=== PATIENT | male | born 1980 | race Caucasian/White ===

== ENCOUNTER 2016-05-19 15:39 | Emergency (ER) | payer OTHER ==
[2016-05-19 16:53] LABS: HEMOGLOBIN 13.9 gm/dl (14.0-17.5); RED BLOOD COUNT 4.58 M/UL (4.20-5.50); WHITE BLOOD COUNT 7.1 K/UL (4.5-11.0)
== END 2016-05-19 19:30 | disposition home or self-care (01) ==
LOC: ER1 15:39 → ZEROF 18:18 → ER1 18:18 → ZEROF 18:18 → ER1 19:30
PROVIDERS: Emergency Medicine
DX: N19 Unspecified kidney failure (principal); K02.9 Dental caries, unspecified; F17.200 Nicotine dependence, unspecified, uncomplicated; E78.5 Hyperlipidemia, unspecified; Z79.899 Other long term (current) drug therapy
CPT/HCPCS: 71010; 80053; 82550; 82553; 83874; 84484; 85025; 85379; 93005; 96374; 96375; 99285; J2270; J2405